=== PATIENT | female | born 1950 | race Caucasian/White ===

== ENCOUNTER 2022-09-29 17:05 | Outpatient (CLI) | payer MEDICARE, OTHER ==
--- NOTE | 2022-09-30 08:07 | XRAY Report ---
PROCEDURE: Abdomen 1 View X-Ray INDICATIONS: LEFT FLANK PAIN TECHNIQUE: One view of the abdomen acquired. COMPARISON: None. FINDINGS: Surgical changes and devices: Surgical hardware in lower lumbar spine at L4-S1 levels are seen. Surgi jeanine clips are also seen in gallbladder fossa.. Bowel: Bowel gas pattern is normal. Soft tissues: No suspicious abdominal calcifications. Visualized solid organ contours appear normal in size. Bones: No suspicious bony lesions. IMPRESSION: No bowel obstruction or gross free air. No gross renal calcification is seen. Reviewed by: Warren Mcconnell MD on 09/30/2022 8:06 AM PDT Approved by: Warren Mcconnell MD on 09/30/2022 8:06 AM PDT Station ID: [id number]
--- NOTE | 2022-09-30 08:07 | XRAY Report ---
PROCEDURE: Chest 2 View X-Ray INDICATIONS: COVID + TECHNIQUE: 2 views of the chest were acquired. COMPARISON: None. FINDINGS: Surgical changes and devices: None. Lungs and pleura: No pleural effusions or pneumothorax. Lungs are clear. Mediastinum: Mediastinal contours appear normal. Heart size is normal. Bones and chest wall: No suspicious bony lesions. Overlying soft tissues appear unremarkable. IMPRESSION: No acute cardiopulmonary process. Reviewed by: Warren Mcconnell MD on 09/30/2022 8:06 AM PDT Approved by: Warren Mcconnell MD on 09/30/2022 8:06 AM PDT Station ID: [id number]
== END 2022-09-29 23:59 | disposition home or self-care (01) ==
LOC: DI.S 17:05
PROVIDERS: ATTEND Physician Assistant Medical
DX: U07.1 COVID-19 (principal); R10.9 Unspecified abdominal pain